=== PATIENT | female | born 1975 | race Caucasian/White ===

== ENCOUNTER → 2016-08-24 | Outpatient (CLI) | payer BC, SELFPAY ==
[~2016-08-24] MED LIST: AUGMENTIN 875-1 EACH PO; BACTRIM DS1 TAB PO; FLORASTOR250 MG PO; HYDROCHLOROTH12.5 MG PO; LEVOTHYROXINE150 MCG PO; LEXAPRO10 MG PO; MOBIC15 MG PO; NORCO 5-325 MG1 TAB PO; PAIN RELIEF650 MG PO; SUDAFED PE PRE1 EAC1 PO; XARELTO15 MG PO; XARELTO20 MG PO; ZOLOFT25 MG PO; ZYRTEC10 MG PO
--- NOTE | ~2016-08-24 | ENPV ---
Vascular Lower Extremities DVT Study Procedure Demographics Patient Name VIC FREIRE Date of Study 08/24/2016 Patient Number [id number] Gender Female Date of 1975 Age 40 Visit Number [id number] Height Accession Number [id number] Weight Room Number BSA BMI Referring Sidney Santiago MD Interpreting Adolph Robison MD Physician Physician Physician Ordering Physician Sidney Santiago MD Elder Counselor Design Assembler Talia West RDCS, RVT Conclusions Summary TECHNIQUE: The veins of the lower extremities on the right and the left were evaluated from the groin to the ankle using chaves scale, compression, and augmentation. Venous hemodynamics were evaluated with color flow and spectral Doppler. FINDINGS: Technically difficult scan. Calf veins limited visualization in some areas. The deep veins of the legs bilaterally show normal color flow and compressibility without thrombosis. IMPRESSION: NEGATIVE BILATERAL LOWER EXTREMITY VENOUS DOPPLER. CALF VEIN ASSESSMENT TECHNICALLY LIMITED. Procedure Type of Study: Veins:Lower Extremities DVT Study, Venous Duplex Lower Extremity Bilateral. Patient Status:Routine. Study Location:Vascular Lab. Technical Quality:Poor visualization due to body habitus. Risk Factors - The patient's risk factor(s) include: obesity. Velocities are measured in cm/s ; Diameters are measured in cm Right Lower Extremities DVT Study Measurements Right 2D and Doppler Measurements + + + + +------+------+ + !Location !Visualized!Compressibility!Thrombosis!Signal!Reflux!Reflux ! ! ! ! ! ! ! !(sec) ! + + + + +------+------+ + !GSV Thigh !Yes !Yes !None !Phasic! ! ! + + + + +------+------+ + !Common !Yes !Yes !None !Phasic! ! ! !Femoral ! ! ! ! ! ! ! + + + + +------+------+ + !Prox !Yes !Yes !None !Phasic! ! ! !Femoral ! ! ! ! ! ! ! + + + + +------+------+ + !Mid Femoral!Yes !Yes !None !Phasic! ! ! + + + + +------+------+ + !Dist !No !No !None !Phasic! ! ! !Femoral ! ! ! ! ! ! ! + + + + +------+------+ + !Popliteal !Yes !Yes !None !Phasic! ! ! + + + + +------+------+ + !Gastroc !No ! ! ! ! ! ! + + + + +------+------+ + !PTV !No ! ! ! ! ! ! + + + + +------+------+ + !Peroneal !No ! ! ! ! ! ! + + + + +------+------+ + Left Lower Extremities DVT Study Measurements Left 2D and Doppler Measurements + + + + +------+------+ + !Location !Visualized!Compressibility!Thrombosis!Signal!Reflux!Reflux ! ! ! ! ! ! ! !(sec) ! + + + + +------+------+ + !GSV Thigh !Yes !Yes !None !Phasic! ! ! + + + + +------+------+ + !Common !Yes !Yes !None !Phasic! ! ! !Femoral ! ! ! ! ! ! ! + + + + +------+------+ + !Prox !Yes !Yes !None !Phasic! ! ! !Femoral ! ! ! ! ! ! ! + + + + +------+------+ + !Mid Femoral!Yes !Yes !None !Phasic! ! ! + + + + +------+------+ + !Dist !Yes !Yes !None !Phasic! ! ! !Femoral ! ! ! ! ! ! ! + + + + +------+------+ + !Popliteal !Yes !Yes !None !Phasic! ! ! + + + + +------+------+ + !Gastroc !No !No !None !Phasic! ! ! + + + + +------+------+ + !PTV !No !Yes !None !Phasic! ! ! + + + + +------+------+ + !Peroneal !No !Yes !None !Phasic! ! ! + + + + +------+------+ + Signature dtt: Michoacano Farfan dtd: 08/24/16 1714 Physician Self Edit
== END | disposition disaster alternative care site (69) ==
LOC: GRAD 16:00
DX: R09.02 Hypoxemia (principal); D35.02 Benign neoplasm of left adrenal gland; D35.01 Benign neoplasm of right adrenal gland; K76.0 Fatty (change of) liver, not elsewhere classified; R06.02 Shortness of breath; R79.89 Other specified abnormal findings of blood chemistry; R91.8 Other nonspecific abnormal finding of lung field
CPT/HCPCS: Q9967

== ENCOUNTER → 2016-08-26 | Outpatient (CLI) | payer BC, SELFPAY | END | disposition disaster alternative care site (69) | LOC: GMIS 19:00 | DX: J18.1 Lobar pneumonia, unspecified organism (principal) | CPT/HCPCS: J0696 ==

== ENCOUNTER 2016-10-04 15:21 | Inpatient (IN) | payer BC, SELFPAY ==
[~2016-10-04] VITALS: Ht 172.7 cm; Wt 184.4 kg
--- NOTE | ~2016-10-04 | ECHO ---
Transthoracic Echocardiography Report (TTE) Demographics Patient Name VIC FREIRE Date of Study 10/05/2016 Patient Number [id number] Visit Number [id number] Date of 1975 Room Number G6205 Gender Female Number Age 41 year(s) Referring Artemio Zurita MD Campaign Marketing Manager Kirby RVT, RDCS Physician Melissa Physician Interpreting Isabela Iversonlarissa Hand Filer Balance Wheel Physician Supervising Ordering Matthew Hart DO, MD/MLP Physician Nurse Stress Iron Worker Apprentice Conclusions Contractility Score Summary Normal Left Ventricular contractility was noted. Summary Technically difficult exam with suboptimal images despite use of contrast, due to patients body habitus. Definity 6 ml was administered. Left ventricular systolic function appears preserved with estimated LVEF 55-60. Unable to comment on regional wall motion abnormalities Diastolic assessment reveals Grade I diastolic dysfunction. Procedure Type of Study TTE procedure:2D Echocardiogram, M-Mode, Doppler , Color Doppler, Contrast study. Procedure Date Date: 10/05/2016 Start: 09:08 AM Study Location: Inpatient Portable Technical Quality: Limited visualization Indications:Pulmonary embolus. Appropriate Use Criteria: 9 Patient Status: Routine HR: 79 bpm BP: 139/81 mmHg M-Mode/2D Measurements LV Diastolic Dimension: 4.61 cm LV Systolic Dimension: 2.91 cm LV Septum Diastolic: 1.95 cm LV PW Diastolic: 1.47 cm AO Root Dimension: 3.2 cm Cardiac Output: 8.45 l/min AV Cusp Separation: 2 cm RV Diastolic Dimension: 2.69 cm LA volume: 34 ml LVOT: 2.5 cm RV Base: 3.84 cm LVOT VTI: 21.8 cm RV Mid: 3.28 cm LV Stroke volume: 106.96 ml TAPSE: 3.08 cm TDI-S': 21.9 cm/s Doppler Measurements AV Peak Velocity: 1.51 m/s MV Peak E-Wave: 0.75 m/s AV Peak Gradient: 9.12 mmHg MV Peak A-Wave: 0.7 m/s AV Mean Gradient: 6 mmHg MV E/A Ratio: 1.06 LVOT Peak Velocity: 0.96 m/s MV P1/2t: 58 msec TR Gradient:11.29 mmHg PV Peak Velocity: 1.08 m/s Estimated RAP:3 mmHg PV Peak Gradient: 4.67 mmHg Estimated RVSP: 14 mmHg Estimated PASP: 14.29 mmHg Findings Left Ventricle Diastolic assessment reveals Grade I diastolic dysfunction. Right Ventricle Normal right ventricular systolic function. Left Atrium Normal left atrial size. Mitral Valve Normal mitral valve structure and function. Aortic Valve Not well visulaized Tricuspid Valve Trivial tricuspid regurgitation by color Doppler. Pulmonic Valve The pulmonic valve is not well visualized. Pericardial Effusion No evidence of pericardial effusion. Pleural Effusion No evidence of pleural effusion. Contractility Score LV regional wall motion:(0-Non visualized 1-Normal 2-Hypokinesis 3-Akinesis 4-Dyskinesis 5-Aneurysm) Signature dtt: KLARISSA PUENTES dtd: 10/05/16 0908 Physician Self Edit
--- NOTE | ~2016-10-04 | DS ---
PATIENT'S NAME: VIC FREIRE [facility] AGE: 41 Y [address] ROOM: G6333 [place], [place] [address] LOCATION: GPCU ADMIT DATE: 10/04/2016 Discharge Summary DISCHARGE DATE: 10/09/2016 FAMILY PHYSICIAN: Karrie Ulloa MD ATTENDING PHYSICIAN: Vicente Reno ADMISSION DIAGNOSIS: Bilateral pulmonary emboli. DISCHARGE DIAGNOSES: 1. Bilateral pulmonary emboli. 2. Acute respiratory failure. 3. Morbid obesity. 4. Hypertension. 5. Vaginal bleeding. HOSPITAL COURSE: See HPI for full details, but briefly, this is a 41-year-old female who had been evaluated in the clinic and was found to have a positive D- dimer. She was sent for a CT of the chest showing large bilateral pleural PEs. She was also hypoxic and tachycardic. Therefore, she was admitted to the ICU and started on a heparin drip. Eventually, tPA was given. She had a history of abnormal vaginal bleeding. Therefore, we did monitor serial H and H as her hemoglobin did drop, the lowest being 11.4, and recovering to 12.1 prior to discharge. Because of her abnormal bleeding, she had a CT of the abdomen which showed endometrial thickening and a large simple cyst on the right ovary. Because of her large PEs, we also ordered an echo which showed an RVSP of 14, grade 1 diastolic dysfunction, normal EF, and normal right ventricular function. She also had lower extremity Dopplers which were normal. After 24 hours of monitoring in the ICU per protocol for tPA, she was transferred to PCU. Workup was initiated for clotting issues, and results for that are pending. Upon admission, she was started on 1 L nasal cannula, and prior to discharge, she was tolerating room air. She did get a little fluid overloaded during her stay and received some IV diuretics. Prior to discharge, the heparin was stopped, and she was transitioned to Xarelto. She was also started on medication for her blood pressure. At discharge, she was alert and oriented x3, and vital signs were stable. She had no complaints of shortness of breath or chest pain. She wanted to discuss with her primary care physician, Dr. Ulloa, in regard to a referral for Gynecology. We will set up followups with Dr. Ulloa in one week for her to discuss that with, and she will follow up with Dr. Goss in 6 weeks. She will be going home on a regular diet, and she is not to do any exertional activity until followup with Dr. Goss. DISCHARGE MEDICATIONS: Included: 1. Tylenol 650 mg orally every 6 hours p.r.n. pain. 2. Hydrochlorothiazide 12.5 mg p.o. every night at bedtime. PATIENT'S NAME: VIC FREIRE [facility] AGE: 41 Y [address] ROOM: [address] [address] [facility] ADMIT DATE: 10/04/2016 Discharge Summary DISCHARGE DATE: 10/09/2016 FAMILY PHYSICIAN: Karrie Ulloa MD ATTENDING PHYSICIAN: Vicente Reno 3. Synthroid 150 mcg p.o. daily. 4. Sertraline 25 mg p.o. daily as needed. 5. Xarelto 15 mg p.o. twice a day until October 26 and then Xarelto 20 mg p.o. daily starting on October 27. Overall, she was discharged in good condition, and she will be Follow up as ordered. KEISHA KNOX APRN FOR VICENTE RENO DO [facility]/modl /[id number] d: 11/09/16 1306 t: 11/12/16 1209, DISCHARGE SUMMARY
--- NOTE | ~2016-10-04 | ENPV ---
Vascular Lower Extremities DVT Study Procedure Demographics Patient Name VIC FREIRE Date of Study 10/05/2016 Patient Number [id number] Gender Female Date of 1975 Age 41 Visit Number [id number] Height 68 Weight 405.01 Number Referring Artemio Karrie Zurita MD Interpreting Solomon Whitney MD Physician Physician Physician Ordering Matthew Hart Manager Software Physician DO Regional Geodetic Advisor Kirby RVT, RDCS Melissa Lockett RVT, RDCS Conclusions Summary Normal venous duplex examination of the legs bilaterally with normal venous Doppler signals noted throughout. No evidence of thrombophlebitis is noted bilaterally in the deep and superficial veins of the legs. Small calf thrombi cannot be excluded. Peroneal veins not visualized bilaterally. Procedure Type of Study: Veins:Lower Extremities DVT Study, Venous Duplex Lower Extremity Bilateral. Indications for Study:Pulmonary embolism. Appropriate Use Criteria:9 Patient Status:Routine. Study Location:Inpatient Portable. Technical Quality:Limited visualization. Velocities are measured in cm/s ; Diameters are measured in cm Right Lower Extremities DVT Study Measurements Right 2D and Doppler Measurements + + + + +------+------+ + !Location !Visualized!Compressibility!Thrombosis!Signal!Reflux!Reflux ! ! ! ! ! ! ! !(sec) ! + + + + +------+------+ + !GSV Thigh !Yes !Yes !None !Phasic! ! ! + + + + +------+------+ + !Common !Yes !Yes !None !Phasic! ! ! !Femoral ! ! ! ! ! ! ! + + + + +------+------+ + !Prox !Yes !Yes !None !Phasic! ! ! !Femoral ! ! ! ! ! ! ! + + + + +------+------+ + !Mid Femoral!Yes !Yes !None !Phasic! ! ! + + + + +------+------+ + !Dist !Yes !Yes !None !Phasic! ! ! !Femoral ! ! ! ! ! ! ! + + + + +------+------+ + !Popliteal !Yes !Yes !None !Phasic! ! ! + + + + +------+------+ + !Gastroc !Yes !Yes !None !Phasic! ! ! + + + + +------+------+ + !PTV !Yes !Yes !None ! ! ! ! + + + + +------+------+ + !Peroneal !No ! ! ! ! ! ! + + + + +------+------+ + Left Lower Extremities DVT Study Measurements Left 2D and Doppler Measurements + + + + +------+------+ + !Location !Visualized!Compressibility!Thrombosis!Signal!Reflux!Reflux ! ! ! ! ! ! ! !(sec) ! + + + + +------+------+ + !GSV Thigh !Yes !Yes !None !Phasic! ! ! + + + + +------+------+ + !Common !Yes !Yes !None !Phasic! ! ! !Femoral ! ! ! ! ! ! ! + + + + +------+------+ + !Prox !Yes !Yes !None !Phasic! ! ! !Femoral ! ! ! ! ! ! ! + + + + +------+------+ + !Mid Femoral!Yes !Yes !None !Phasic! ! ! + + + + +------+------+ + !Dist !Yes !Yes !None !Phasic! ! ! !Femoral ! ! ! ! ! ! ! + + + + +------+------+ + !Popliteal !Yes !Yes !None !Phasic! ! ! + + + + +------+------+ + !Gastroc !Yes !Yes !None !Phasic! ! ! + + + + +------+------+ + !PTV !Yes !Yes !None ! ! ! ! + + + + +------+------+ + !Peroneal !No ! ! ! ! ! ! + + + + +------+------+ + Signature dtt: TERESO STONE dtd: 10/05/16 0838 Physician Irvin Osorio
[~2016-10-04 15:21] MED LIST changes: -MOBIC15 MG PO; -SUDAFED PE PRE1 EAC1 PO; -XARELTO15 MG PO; -XARELTO20 MG PO; -ZOLOFT25 MG PO; -ZYRTEC10 MG PO
[2016-10-04] MEDS ORDERED: ZYRTEC10 MG PO (18:41)
[2016-10-04] MEDS ORDERED: SUDAFED PE PRE1 EAC1 PO (18:42)
[2016-10-04] MEDS ORDERED: MOBIC15 MG PO (18:42)
[2016-10-04] MEDS ORDERED: ZOLOFT25 MG PO (18:43)
[2016-10-04 21:59] LABS: BASOPHIL # 0.1 K/uL (0.0-0.2); BASOPHIL % 0.6 %; EOSINOPHIL # 0.2 K/uL (0.0-0.5); EOSINOPHIL % 2.1 %; HEMATOCRIT 46.6 % (33.0-46.0); HEMOGLOBIN 14.9 g/dL (10.0-15.0); IMMATURE GRANULOCYTE # 0.1 K/uL (0.0-0.3); IMMATURE GRANULOCYTE % 0.5 %; LYMPHOCYTE # 2.2 K/uL (0.8-4.0); LYMPHOCYTE % 19.9 %; MCH 29.9 pg (27.0-34.0); MCV 93.4 fl (83.0-98.0); MONOCYTE # 0.8 K/uL (0.0-1.0); MONOCYTE % 7.1 %; MPV 9.6 fl (9.4-12.4); NEUTROPHIL # (ANC) 7.7 K/uL (1.8-7.8); NEUTROPHIL % 69.8 %; NRBC % 0 /100WBC (0-0.00); PLATELET COUNT 218 K/uL (150-450); RBC 4.99 M/uL (3.50-5.50); RDW-CV 15.9 % (11.9-14.6)
[2016-10-04 23:46] LABS: INR - (THERAPEUTIC) 1.35 (0.92-1.07); PROTIME 14.2 SECONDS (9.8-11.4)
[2016-10-05 03:49] LABS: BASOPHIL # 0.1 K/uL (0.0-0.2); BASOPHIL % 0.5 %; EOSINOPHIL # 0.4 K/uL (0.0-0.5); EOSINOPHIL % 3.7 %; HEMATOCRIT 41.9 % (33.0-46.0); HEMOGLOBIN 13.6 g/dL (10.0-15.0); IMMATURE GRANULOCYTE # 0.1 K/uL (0.0-0.3); IMMATURE GRANULOCYTE % 0.4 %; LYMPHOCYTE % 26.7 %; MCH 30.2 pg (27.0-34.0); MCHC 32.5 gm/dL (32.0-36.5); MCV 93.1 fl (83.0-98.0); MONOCYTE # 0.9 K/uL (0.0-1.0); MONOCYTE % 8.2 %; MPV 9.6 fl (9.4-12.4); NEUTROPHIL # (ANC) 6.8 K/uL (1.8-7.8); NEUTROPHIL % 60.5 %; NRBC % 0 /100WBC (0-0.00); PLATELET COUNT 212 K/uL (150-450); RDW-CV 15.9 % (11.9-14.6); WBC 11.3 K/uL (4.0-11.0)
[2016-10-05 03:57] LABS: ALK PHOS 64 IU/L (33-138); ALT 35 IU/L (12-78); ANION GAP 12.9 (10.0-19.0); AST 24 IU/L (10-40); BLOOD UREA NITROGEN 14 mg/dL (6-24); CALCIUM 8.8 mg/dL (8.5-10.5); CHLORIDE 108 mMol/L (96-110); CO2 22 mMol/L (22-32); CREATININE 0.8 mg/dL (0.5-1.1); ESTIMATED GFR (MDRD EQUATION) > 60; POTASSIUM 3.9 mMol/L (3.7-5.1); SODIUM 139 mMol/L (135-145); TOTAL BILIRUBIN 0.6 mg/dL (0.0-1.5); TOTAL PROTEIN 6.9 g/dL (6.0-8.4)
[2016-10-05 11:11] LABS: HEMATOCRIT 40.2 % (33.0-46.0)
[2016-10-05 17:03] LABS: HEMATOCRIT 39.8 % (33.0-46.0); HEMOGLOBIN 12.8 g/dL (10.0-15.0)
[2016-10-06 00:47] LABS: HEMATOCRIT 38.7 % (33.0-46.0); HEMOGLOBIN 12.4 g/dL (10.0-15.0)
[2016-10-06 06:20] LABS: HEMATOCRIT 39.4 % (33.0-46.0); HEMOGLOBIN 12.4 g/dL (10.0-15.0)
[2016-10-06 08:50] LABS: CREATININE 0.7 mg/dL (0.5-1.1)
[2016-10-06 08:54] LABS: ESTIMATED GFR (MDRD EQUATION) > 60
[2016-10-06 11:31] LABS: HEMOGLOBIN 12.8 g/dL (10.0-15.0)
[2016-10-06 18:21] LABS: HEMOGLOBIN 13.7 g/dL (10.0-15.0)
[2016-10-06 23:07] LABS: HEMATOCRIT 38.5 % (33.0-46.0); HEMOGLOBIN 12.6 g/dL (10.0-15.0)
[2016-10-07 06:35] LABS: HEMATOCRIT 36.1 % (33.0-46.0); HEMOGLOBIN 11.4 g/dL (10.0-15.0)
[2016-10-07 11:11] LABS: HEMATOCRIT 36.3 % (33.0-46.0); HEMOGLOBIN 11.5 g/dL (10.0-15.0)
[2016-10-08 04:59] LABS: HEMOGLOBIN 12.1 g/dL (10.0-15.0)
[2016-10-09] MEDS ORDERED: XARELTO20 MG PO (12:33)
[2016-10-09] MEDS ORDERED: XARELTO15 MG PO (12:37)
== END 2016-10-09 15:10 | disposition disaster alternative care site (69) | DRG 175 ==
LOC: GRAD 15:21 → GICU 17:28 → GPCU 10-05 19:59
PROVIDERS: ADMIT Thoracic Surgery (Cardiothoracic Vascular Surgery)
PROC: 3E03317 Introduction of Other Thrombolytic into Peripheral Vein, Percutaneous Approach (ICD-10-PCS; principal; 2016-10-05)
PROC: B246ZZZ Ultrasonography of Right and Left Heart (ICD-10-PCS; principal; 2016-10-05)
DX: I26.99 Other pulmonary embolism without acute cor pulmonale (principal); J96.01 Acute respiratory failure with hypoxia; Z68.44 Body mass index [BMI] 60.0-69.9, adult; E66.01 Morbid (severe) obesity due to excess calories; I10 Essential (primary) hypertension; N93.9 Abnormal uterine and vaginal bleeding, unspecified; R00.0 Tachycardia, unspecified; R93.8 Abnormal findings on diagnostic imaging of other specified body structures
CPT/HCPCS: J1644; J2270; J2997; J7030; Q9957; Q9967

== ENCOUNTER 2016-10-11 00:48 | Emergency (ER) | payer BC, SELFPAY ==
--- NOTE | ~2016-10-11 | ER ---
PATIENT'S NAME: VIC FREIRE [facility] AGE: 41 Y [address] ROOM: [place] [address] LOCATION: ED ADMIT DATE: 10/11/2016 ER/Outpatient Report DISCHARGE DATE: 10/11/2016 FAMILY PHYSICIAN: Karrie Ulloa MD ATTENDING PHYSICIAN: Elliot Samson Admission date and time documented on the medical record. I saw the patient at 0100 hours. CHIEF COMPLAINT: Respiratory distress, shortness of breath. HISTORY OF PRESENT ILLNESS: This patient is a 41-year-old female who about 1700 hours yesterday afternoon developed some increasing shortness of breath and some respiratory distress. She got really short of breath and had some left-sided chest pain. The patient just got out of the hospital about the day before. She was in the hospital with pulmonary embolism. She was started on Xarelto and sent home on Xarelto. She has been doing fairly well until this incident. Quite anxious when she got here, hyperventilating with a respiratory rate of 24, pulse rate was normal at 78 and O2 saturation on 4 L oxygen per nasal cannula was 95%. She normally on 3 L at home. No fall or trauma. No headache, eyes, ears, nose, throat, neck, or spine pain. No lightheadedness, dizziness, syncope, or near syncope. Left-sided chest pain with inspiration. No abdominal pain, nausea, vomiting, or diarrhea. No urinary complaints. No joint or muscle swelling, redness, or pain. No skin eruptions or rash. No history of neuro changes or psych issues. She does have a history of hypothyroidism and possibly a little bit of depression. HOME MEDICATIONS: See attached medication list. ALLERGIES: NONE. SOCIAL HISTORY: Nonsmoker, nondrinker. SIGNIFICANT PAST MEDICAL HISTORY: Hypertension, nephrolithiasis, pulmonary embolism, anticoagulation with Xarelto, exogenous obesity, hypothyroidism, depression, and pneumonia. OPERATIONS: None. PATIENT'S NAME: VIC FREIRE [facility] AGE: 41 Y [address] ROOM: [place] [address] LOCATION: ED ADMIT DATE: 10/11/2016 ER/Outpatient Report DISCHARGE DATE: 10/11/2016 FAMILY PHYSICIAN: Karrie Ulloa MD ATTENDING PHYSICIAN: Elliot Samson REVIEW OF SYSTEMS: All systems reviewed by me are negative with the exception of those discussed in the history of present illness. PHYSICAL EXAMINATION: VITAL SIGNS: Temperature 97.3, pulse 78 and regular, respirations 24, blood pressure 141/86, and O2 saturation on 4 L oxygen per nasal cannula is 95%. HEAD: Normocephalic. EYES, EARS, NOSE, THROAT: Clear. Mucous membranes moist. Teeth, jaw intact. NECK: No nuchal rigidity. No thyromegaly or cervical adenopathy. No tenderness to palpation. SPINE: Negative. LUNGS: Clear. Good air flow in all lung bedolla. HEART: Regular. Pulses are palpable. No chest wall or ribcage pain to palpation. ABDOMEN: Obese, soft, nondistended, nontender. Good bowel tones. No organomegaly or abnormal mass palpable. EXTREMITIES: Some edema, but not pitting. No cyanosis. DICTATION ENDS HERE MD BISHOP ALEXIS/modl /[id number] d: 10/11/16632 t: 10/11/16 1826, OUTPATIENT REPORT
--- NOTE | ~2016-10-11 | ER ---
PATIENT'S NAME: VIC FREIRE [facility] AGE: 41 Y [address] ROOM: [place] [address] LOCATION: [facility] ADMIT DATE: 10/11/2016 ER/Outpatient Report DISCHARGE DATE: 10/11/2016 FAMILY PHYSICIAN: Karrie Ulloa MD ATTENDING PHYSICIAN: Elliot Samson ADDENDUM: I did give the patient ibuprofen orally for fever. IMPRESSION: Chest pain and shortness of breath secondary to pulmonary embolism. PLAN: The patient was discharged from the Emergency Department. The patient is on medication for pulmonary embolism, and she is to continue her present home medications and care. I did give her [place] as needed for pain. Follow up with personal physician in 1 to 2 days. Discussion ensued with the patient concerning my findings and recommendations. She understands. MD BISHOP ALEXIS/modl /[id number] d: 10/18/16 2254 t: 10/19/16 1813, OUTPATIENT REPORT
[~2016-10-11 00:48] MED LIST changes: +MOBIC15 MG PO; +SUDAFED PE PRE1 EAC1 PO; +XARELTO15 MG PO; +XARELTO20 MG PO; +ZOLOFT25 MG PO; +ZYRTEC10 MG PO
[2016-10-11 01:33] LABS: BASOPHIL # 0.1 K/uL (0.0-0.2); BASOPHIL % 0.6 %; EOSINOPHIL # 0.8 K/uL (0.0-0.5); EOSINOPHIL % 8.1 %; HEMATOCRIT 42.1 % (33.0-46.0); HEMOGLOBIN 13.3 g/dL (10.0-15.0); IMMATURE GRANULOCYTE # 0.1 K/uL (0.0-0.3); IMMATURE GRANULOCYTE % 0.6 %; LYMPHOCYTE # 2.2 K/uL (0.8-4.0); LYMPHOCYTE % 21.5 %; MCH 29.7 pg (27.0-34.0); MCHC 31.6 gm/dL (32.0-36.5); MONOCYTE # 0.7 K/uL (0.0-1.0); MONOCYTE % 6.8 %; MPV 9.4 fl (9.4-12.4); NEUTROPHIL # (ANC) 6.3 K/uL (1.8-7.8); NEUTROPHIL % 62.4 %; NRBC % 0 /100WBC (0-0.00); PLATELET COUNT 229 K/uL (150-450); RBC 4.48 M/uL (3.50-5.50); RDW-CV 15.5 % (11.9-14.6)
[2016-10-11 01:41] LABS: BICARBONATE 33.3 mmol/L (18.0-23.0); LACTATE 1.6 mEq/L (0.50-1.60); PCO2 49 mmHg (35-45); PO2 90 mmHg (80-90)
[2016-10-11 01:51] LABS: ALBUMIN 3.4 gm/dL (3.5-5.0); ALK PHOS 69 IU/L (33-138); ALT 56 IU/L (12-78); AST 34 IU/L (10-40); BLOOD UREA NITROGEN 15 mg/dL (6-24); CALCIUM 9.3 mg/dL (8.5-10.5); CHLORIDE 103 mMol/L (96-110); CO2 29 mMol/L (22-32); CPK 25 IU/L (21-215); CREATININE 0.9 mg/dL (0.5-1.1); ESTIMATED GFR (MDRD EQUATION) > 60; MAGNESIUM 2.1 mg/dL (1.8-2.6); SODIUM 139 mMol/L (135-145); TOTAL BILIRUBIN 0.4 mg/dL (0.0-1.5); TOTAL PROTEIN 7.9 g/dL (6.0-8.4)
[2016-10-11 02:01] LABS: PROTIME 10.7 SECONDS (9.8-11.4); PTT 31 SECONDS (25-32)
[2016-10-11 02:18] LABS: INR - (THERAPEUTIC) 1.02 (0.92-1.07)
== END 2016-10-11 03:12 | disposition disaster alternative care site (69) ==
LOC: GMED 00:48
PROVIDERS: Emergency Medicine
DX: R06.02 Shortness of breath (principal); R06.00 Dyspnea, unspecified; R07.9 Chest pain, unspecified; E66.9 Obesity, unspecified; I10 Essential (primary) hypertension; E03.9 Hypothyroidism, unspecified; F32.9 Major depressive disorder, single episode, unspecified; Z86.711 Personal history of pulmonary embolism; Z79.01 Long term (current) use of anticoagulants; Z79.899 Other long term (current) drug therapy